=== PATIENT | female | born 1975 | race Caucasian/White ===

== ENCOUNTER 2023-06-07 18:55 | Emergency (ER) | payer SELFPAY ==
[2023-06-07] MEDS ORDERED: Ketorolac Tromethamine 30 MG/ML VIAL ONE (20:48)
== END 2023-06-07 21:34 | disposition home or self-care (01) ==
LOC: ERS 18:55
DX: S82.62XA Displaced fracture of lateral malleolus of left fibula, initial encounter for closed fracture (principal); I10 Essential (primary) hypertension; E03.9 Hypothyroidism, unspecified; Z87.891 Personal history of nicotine dependence; Z79.899 Other long term (current) drug therapy; W11.XXXA Fall on and from ladder, initial encounter
CPT/HCPCS: 29515; 96372; J1885

== ENCOUNTER 2023-06-11 09:11 | Emergency (ER) | payer SELFPAY ==
[2023-06-11] MEDS ORDERED: Ketorolac Tromethamine 30 MG/ML VIAL ONE (11:20)
[2023-06-11] MEDS ORDERED: Cyclobenzaprine 10 MG TAB ONE (11:21)
[2023-06-11] MEDS ORDERED: Gabapentin 300 MG CAP ONE (11:22)
[2023-06-11] MEDS ORDERED: Lidocaine 4% Patch TD SCH (11:30)
[2023-06-11] MEDS ORDERED: Transdermal Patch Removal TOP SCH (23:59)
== END 2023-06-11 13:30 | disposition home or self-care (01) ==
LOC: ERS 09:11
DX: M54.32 Sciatica, left side (principal); I10 Essential (primary) hypertension; E03.9 Hypothyroidism, unspecified; Z79.899 Other long term (current) drug therapy; Z87.891 Personal history of nicotine dependence
CPT/HCPCS: 96372; 99283; J1885